=== PATIENT | male | born 1940 | race Two or more races ===

== ENCOUNTER 2025-05-21 18:44 | Emergency (ER) | payer OTHER ==
[~2025-05-21] VITALS: Ht 175.3 cm; Wt 77.1 kg
[2025-05-21] MEDS ORDERED: INTESTINEX680 M1 PO (19:01)
== END 2025-05-21 20:44 | disposition home or self-care (01) ==
LOC: ER 20:38
DX: K59.01 Slow transit constipation (principal); Z88.0 Allergy status to penicillin